=== PATIENT | female | born 1940 | race Caucasian/White ===

== ENCOUNTER 2023-06-10 10:17 | Day surgery (SDC) | payer MEDICARE, MEDICAID ==
[2023-06-10] VITALS (13 sets, daily range): BP systolic 89–137; BP diastolic 42–84; PULSE 48–95; RESP 9–16; TEMP 98.1; O2SAT 93–98
[~2023-06-10] VITALS: Ht 165.1 cm; Wt 77.1 kg
[2023-06-10] MEDS ORDERED: morphine 10mg/ml inj. IV ONE (11:05)
[2023-06-10] MEDS ORDERED: normal saline 1000ml 1,000 ML IV SCH (11:05)
[2023-06-10] MEDS ORDERED: MIDAZolam 1mg/ml 10ml vial IV ONE (11:05)
[2023-06-10 12:05] LABS: BASOPHILS % (AUTO) 0.4 % (0-1); EOSINOPHILS # (AUTO) 0.1 X10'3 (0-0.9); EOSINOPHILS % (AUTO) 1.2 % (0-6); HEMATOCRIT 40.2 % (35.0-45.0); HEMOGLOBIN 13.5 g/dl (12.0-16.0); LYMPHOCYTES # (AUTO) 1.5 X10'3 (1.1-4.8); LYMPHOCYTES % (AUTO) 15.2 % (21-51); MEAN CORPUSCULAR HGB CONC 33.7 g/dL (33.0-36.5); MONOCYTES # (AUTO) 0.8 X10'3 (0-0.9); MONOCYTES % (AUTO) 8.7 % (2-12); NEUTROPHILS # (AUTO) 7.1 X10'3 (1.8-7.7); NEUTROPHILS % (AUTO) 74.5 % (42-75); PLATELET COUNT 321 X10'3 (140-440); WHITE BLOOD COUNT 9.6 X10'3 (4.5-11.0)
[2023-06-10 12:18] LABS: ALBUMIN 3.5 G/DL (3.4-5.0); ANION GAP 12 (8-16); BLOOD UREA NITROGEN 27 MG/DL (7-18); BUN/CREATININE RATIO 19.4 (10.0-20.0); CALCIUM 9.4 MG/DL (8.5-10.1); CHLORIDE 105 MMOL/L (99-107); CREATININE 1.39 MG/DL (0.40-0.90); GLUCOSE 95 MG/DL (70-104); POTASSIUM 3.7 MMOL/L (3.5-5.1); PROTHROMBIN TIME 10.3 SECONDS (9.0-12.0); SODIUM 143 MMOL/L (135-145); eCRCL 29 ML/MIN; eGFR 36 ML/MIN
[2023-06-10] MEDS ORDERED: APIX5TAB3 PO (15:15)
[2023-06-10] MEDS ORDERED: METO50TA7 PO (15:15)
[2023-06-10] MEDS ORDERED: FURO20TA4 PO (15:15)
[2023-06-10] MEDS ORDERED: CHOL500050 PO (15:15)
[2023-06-10] MEDS ORDERED: PANT-47 PO (15:15)
[2023-06-10] MEDS ORDERED: SACU1TAB PO (15:15)
[2023-06-10] MEDS ORDERED: ALEN70TA31 PO (15:15)
[2023-06-10] MEDS ORDERED: CYAN100T9 PO (15:15)
[2023-06-10] MEDS ORDERED: EMPA10TA PO (15:15)
[2023-06-10] MEDS ORDERED: SERT-434 PO (15:15)
[2023-06-10] MEDS ORDERED: DONE10TA19 PO (15:15)
== END 2023-06-10 15:50 | disposition home or self-care (01) ==
LOC: SSTAY O 10:17
PROVIDERS: ATTEND Student in an Organized Health Care Education/Training Program
DX: I48.91 Unspecified atrial fibrillation (principal); I10 Essential (primary) hypertension; I42.9 Cardiomyopathy, unspecified; K21.9 Gastro-esophageal reflux disease without esophagitis; Z85.828 Personal history of other malignant neoplasm of skin; Z79.01 Long term (current) use of anticoagulants; Z79.899 Other long term (current) drug therapy; Z88.5 Allergy status to narcotic agent
CPT/HCPCS: 36415; 80048; 85025; 85610; 92960; 93005; J2250; J2274; J7030; A4620